=== PATIENT | female | born 1950 | race Caucasian/White ===

== ENCOUNTER 2019-10-10 09:58 | Outpatient (CLI) | payer MEDICARE, SELFPAY ==
--- NOTE | 2019-10-10 10:05 | US_ITS ---
WS: [id number] RENAL ULTRASOUND HISTORY: MICROSCOPIC HEMATURIA COMPARISON: None available. TECHNIQUE: 2-D and color Doppler imaging of the kidney submitted. Right kidney: 12.0 cm x 6.1 cm x 4.2 cm. Normal echogenicity with no hydronephrosis or mass. Left kidney: 12.5 cm x 6.6 cm x 4.9 cm. Normal echogenicity with no hydronephrosis or mass. Aorta: Normal. Urinary Bladder: Normal distention. US/US renal BI* [id number] IMPRESSION: Normal renal ultrasound.
== END 2019-10-10 09:59 | disposition home or self-care (01) ==
LOC: RAD 10:02
PROVIDERS: Family Provider Nurse Practitioner Family; PCP Nurse Practitioner Family; Visit Provider Internal Medicine
DX: R80.1 Persistent proteinuria, unspecified (principal); R31.29 Other microscopic hematuria
CPT/HCPCS: 76770